=== PATIENT | female | born 1970 | race Caucasian/White ===

== ENCOUNTER 2017-03-04 18:11 | Emergency (ER) | payer OTHER ==
[~2017-03-04 18:11] MED LIST: ABILIFY5 MG PO; CELEBREX200 MG PO; FERROUS SULFAT325 M1 PO; FLUOXETINE HCL20 MG PO; IBUPROFEN600 MG PO; LAMOTRIGINE100 MG PO; LATUDA20 MG; NICOTINE T14 MG/24 H TOP; PROTONIX40 MG PO; VISTARIL25 MG PO
--- NOTE | 2017-03-04 19:35 | ED ORDER SUMMARY ---
..... Patient: ORALIA STEVE OrderSheet [facility] VisitID: [id number] [place] [address] 47y, F Registration Date/Time: 03/04/2017 ORDER SHEET Weight: 69.8 kg (stated) Allergies: No Known Drug Allergy GENERAL ORDERS: MEDICATION ORDERS: Bactrim DS PO (Tablet 800-160 mg) 1 tab (NOW) (19:03/04/2017 Pattie GARCIA) (Ack 19:34 RMarssharda R.N.) (19:42 RMarsden R.N.) Dilaudid IM 1 mg (HIGH ALERT MEDICATION, NOW) (:03/04/2017 Pattie GARCIA) (Ack 19:34 Jose R.N.) (19:42 RMarsden R.N.) IV FLUIDS: ORDER SHEET NOTES: [Electronically signed by Layne Sheppard R.N. (20:03/04/2017)] [Electronically signed by Marlen Quintana MD (10:02 03/11/2017)] [Electronically locked/signed by Layne Sheppard R.N. (20:03/04/2017)]
--- NOTE | 2017-03-04 19:35 | ED NURSING NOTES ---
Clinical Report - Nurses [facility] [address] [place] [address] 03/04/2017 18:13 Patient: ORALIA STEVE TRIAGE Triage time 18:16. Acuity: LEVEL 3. Chief Complaint: BOIL. Alert. No acute distress. JEFF COMA SCORE: Wayne Coma Scale: 15- eyes open spontaneously (4); best verbal response- oriented x 4 (5); best motor response- obeys commands (6). --18:28 Yumiko Petersen R.N. 18:15 03/04/17. BP: 109/70. HR: 101. RR: 18. O2 saturation: 100% on room air. Temp: 98.5 F (oral). Pain level now: 03/22. --18:28 Yumiko Petersen R.N. Weight: 69.8 kg stated. Height/Length: 62 inches. BMI: 28.2. --18:17 Yumiko Petersen R.N. Medications LaMICtal Oral 80 mg, daily. --18:24 Yumiko Petersen R.N. Abilify Oral (Tablet 10 mg), daily. --18:24 Yumiko Petersen R.N. PROzac Oral 80 mg, daily. --18:25 Yumiko Petersen R.N. Latuda Oral (Tablet 80 mg), daily. --18:25 Yumiko Petersen R.N. Something for anxiety. --18:26 Yumiko Petersen R.N. Iron Oral. --18:26 Yumiko Petersen R.N. Medication/allergy information source: the patient. --18:28 Yumiko Petersen R.N. Allergies No Known Drug Allergy. --18:26 Yumiko Petersen R.N. History Arrived by private vehicle. Historian: patient. Unaccompanied. Primary physician (Verito). Reported as located on the left thigh. Onset. (about 4 days). It is described as painful. PAST MEDICAL HX: Immunizations: up-to-date. Last normal menstrual period- February 2017. SOCIAL HX: Heavy tobacco smoker- less than 1 pack per day (vaps). Occasional alcohol use; consumes liquor. History of drug use: marijuana. (mushrooms). ABUSE ASSESSMENT: No report of abuse. SELF HARM ASSESSMENT: A self harm assessment was performed. The patient answered "no" to the question "Have you recently felt down, depressed, or hopeless?", "Have you noticed less interest or pleasure in doing things?", "Do you have thoughts of harming or killing yourself?", "Are you here because you tried to hurt yourself?", "Have you ever tried to hurt yourself before today?", "Have you recently had thoughts about harming or killing others?" and "Do you have any dangerous items in your possession?". FALL RISK ASSESSMENT: Fall risk assessment completed. No fall risk identified. FUNCTIONAL ASSESSMENT: Functional assessment: no impairments noted. LEARNING NEEDS ASSESSMENT: The learning needs assessment revealed no barriers. --18:28 Yumiko Petersen R.N. PROBLEMS: Schizoaffective Disorder. Anxiety Reaction. Abdominal Pain. Diarrhea. Vomiting. Anemia. Medication Refill. Normal Exam. Kidney Infection. Nephrolithiasis. Depression. --18:26 Yumiko Petersen R.N. ADDITIONAL SURGERIES: Abdominal Hernia Repair. Cholecystectomy. . Gastric bypass. Tonsillectomy. Vag warts. --18:26 Yumiko Petersen R.N. Assessment GENERAL / NEURO / PSYCH: Alert. Oriented X 4. Appears in no acute distress. Patient appears calm and cooperative. RESPIRATORY: Respirations not labored. SKIN: Skin is warm and dry. --18:28 Yumiko Petersen R.N. Interventions ID band on patient. To treatment room. --18:28 Yumiko Petersen R.N. PHYSICAL ASSESSMENT 18:32 03/04/17. Ambulatory to room. Patient gowned. GENERAL / NEURO / PSYCH: Alert. The patient does not appear to be in acute distress. Oriented X 4. RESPIRATORY: Respirations not labored. SKIN: Skin is warm and dry. --18:32 Yumiko Petersen R.N. NURSING PROGRESS NOTES 18:31 03/04/17. Head of bed elevated. Call light placed in reach. Side rails up x 1. Bed placed in lowest position. Brakes of bed on. --18:31 Yumiko Petersen R.N. 19:42 03/04/2017 Bactrim DS (Sulfamethoxazole-TMP DS) PO Tablets 1 tab given. Allergies verified and confirmed 5 rights. --19:42 Layne Sheppard R.N. 19:42 03/04/2017 Dilaudid (HYDROmorphone HCl PF) IM 1 mg given. Given in the right deltoid. Allergies verified, confirmed 5 rights and sedative warning given to the patient. --19:42 Layne Sheppard R.N. 19:45 03/04/17. I & D: Incision and Drainage of abscess performed by ED physician. Assisted by one nurse. The abscess is located on the left thigh. Preparation: Incision and Drainage tray set up. Procedure; a small amount of pus was drained. Cavity was irrigated with saline and packed with gauze. Sample obtained for cultures. A dressing was applied. Post-procedure: she was stable, no complications, bleeding controlled and dressing intact. Estimated blood loss: 2 mL. Total time of assist / procedure: 15 minutes. --19:45 Layne Sheppard R.N. Applied clean dressing consisting of 4x4 gauze, following the application of antibiotic ointment (bacitracin). Secured with rocio. --19:46 Layne Sheppard R.N. 19:51 03/04/2017 Bactrim DS PO Response: no adverse reaction. 03/04/2017 19:51 BP: 112/59. HR: 88. RR: 14. O2 saturation: 96%. Temp: 98.6 F. Pain level now: 10/23. --20:31 Layne Sheppard R.N. 19:51 03/04/2017 Dilaudid IM Response: no adverse reaction pain is gone now. Symptoms have improved the patient feels better. 03/04/2017 19:51 BP: 112/59. HR: 88. RR: 14. O2 saturation: 96%. Temp: 98.6 F. Pain level now: 10/23. --20:31 Layne Sheppard R.N. DISPOSITION / DISCHARGE 19:56 03/04/17. No learning barriers present. Discharge instructions provided and reviewed with the patient. Reviewed warnings. Reviewed medication(s). Treatments reviewed. Reviewed referrals. Patient verbalized understanding. Written instructions provided in E[place]. The patient was discharged home. She left the Emergency Department ambulatory and via taxi. --19:56 Layne Sheppard R.N. 19:51 03/04/17. BP: 112/59 taken on the left arm, while sitting. HR: 88. RR: 14. O2 saturation: 96%. Temp: 98.6 F. Pain level now: 10/23. --19:56 Layne Sheppard R.N. Locked/Released at 03/04/2017 20:31 by Layne Sheppard R.N.
--- NOTE | 2017-03-04 19:35 | ED CLINICAL REPORT ---
Clinical Report - Physicians/Mid Levels [facility] [address] [place] [address] 03/04/2017 18:13 Patient: ORALIA STEVE Time Seen: 18:20. Arrived- By private vehicle. Historian- patient. HISTORY OF PRESENT ILLNESS Chief Complaint: BOIL. This started several days ago and is still present. It is described as painful. It has been located on the left lower extremity. No cause has been identified. Similar symptoms previously: Occasionally. Recent medical care: Not recently seen/assessed. REVIEW OF SYSTEMS No fever, chills, sore throat, cough or difficulty breathing. No hoarseness, enlarged lymph nodes, headache, eye irritation or chest pain. No abdominal pain, nausea, diarrhea, difficulty with urination or joint pain. No vomiting. All systems otherwise negative, except as recorded above. PAST HISTORY Problems: Schizoaffective Disorder. Anxiety Reaction. Anemia. Nephrolithiasis. Depression. Additional Surgeries: Abdominal Hernia Repair. Cholecystectomy. . Gastric bypass. Tonsillectomy. Vag warts. Medications: Iron Oral. Something for anxiety. Latuda Oral (Tablet 80 mg), daily. PROzac Oral 80 mg, daily. Abilify Oral (Tablet 10 mg), daily. LaMICtal Oral 80 mg, daily. Allergies: No Known Drug Allergy. SOCIAL HISTORY Smoker- current status unknown. Alcohol use. History of drug use: marijuana. ADDITIONAL NOTES The nursing notes have been reviewed. PHYSICAL EXAM Vital Signs: 03/04/2017 18:15 BP: 109/70. HR: 101. RR: 18. O2 saturation: 100%. Temp: 98.5 F. Pain level now: 7/10. Have been reviewed. Appearance: Alert. Oriented X3. No acute distress. Eyes: Pupils equal, round and reactive to light. Conjunctivae and eyelids normal. ENT: Nose normal. Neck: Neck supple. CVS: Normal heart rate and rhythm. Heart sounds normal. Respiratory: No respiratory distress. Breath sounds normal. Abdomen: Nontender. Skin: Skin warm and dry. Normal skin color. No rash. Single medium tender indurated area with fluctuance and cellulitis to left thigh. No drainage. Extremities: (Normal inspection other than abscess mentioned above.). Neuro: No motor deficit. No sensory deficit. (Grossly oriented.). LABS, X-RAYS, AND EKG Pulse Oximetry: 03/04/2017 18:15 O2 saturation: 100%. (FIO2 - room air). Interpretation: normal. PROGRESS AND PROCEDURES Incision & Drainage of Abscess: The abscess is located in the left thigh. The risks of the procedure, benefits and alternatives were explained. Local anesthesia provided using 2% lidocaine. Skin cleansed with Betadine. The abscess was incised with a #11 surgical blade. A moderate amount of pus was drained. Cavity was irrigated with saline and packed with gauze. Sample obtained for cultures and gram stain. A dressing was applied. Course of Care: Patient was given Bactrim and a dose of Dilaudid in the emergency department. She was instructed regarding care of her abscess and the need for recheck of the wound with packing removal in 2 days. Patient counseled in person regarding the patient's stable condition, diagnosis and need for follow-up. Concerns were addressed. Old medical records reviewed. Disposition: Discharged. Condition: stable and improved. CLINICAL IMPRESSION Single superficial abscess to the left lower extremity with incision and drainage. INSTRUCTIONS Warnings: SEDATIVE MEDICATION: You were given sedative medication during your visit. Do not drive or operate dangerous machinery for 6 hours. GENERAL WARNINGS: Return or contact your physician immediately if your condition worsens or changes unexpectedly, if not improving as expected, or if other problems arise. Your Current Medications: CONTINUE TAKING THE FOLLOWING MEDICATIONS: Abilify Oral : Tablet 10 mg, daily. Iron Oral. LaMICtal Oral : 80 mg daily. Latuda Oral : Tablet 80 mg, daily. PROzac Oral : 80 mg daily. Something for anxiety*. Prescription Medications: Hydrocodone/APAP 5mg / 325mg: take 1-2 orally every 6 hours as needed for pain. Dispense fifteen (15). No refill. Bactrim DS 800 mg / 160 mg: take 1 tablet orally every 12 hours for 7 days. No refill. Substitution is permissible. Follow-up: Follow up with your doctor in two days for wound check and packing removal. Understanding of the discharge instructions verbalized by patient. (Electronically signed by Marlen Quintana MD 03/11/2017 10:02)
--- NOTE | 2017-03-04 19:35 | ED ORDER SUMMARY ---
..... Patient: ORALIA STEVE OrderSheet [facility] VisitID: [id number] [place] [address] 47y, F Registration Date/Time: 03/04/2017 ORDER SHEET Weight: 69.8 kg (stated) Allergies: No Known Drug Allergy GENERAL ORDERS: MEDICATION ORDERS: Bactrim DS PO (Tablet 800-160 mg) 1 tab (NOW) (19:03/04/2017 Pattie GARCIA) (Ack 19:34 RMarssharda R.N.) (19:42 RMarsden R.N.) Dilaudid IM 1 mg (HIGH ALERT MEDICATION, NOW) (:03/04/2017 Pattie GARCIA) (Ack 19:34 Jose R.N.) (19:42 RMarsden R.N.) IV FLUIDS: ORDER SHEET NOTES: [Electronically signed by Layne Sheppard R.N. (20:03/04/2017)] [Electronically signed by Marlen Quintana MD (10:02 03/11/2017)] [Electronically locked/signed by Layne Sheppard R.N. (20:03/04/2017)]
--- NOTE | 2017-03-11 10:02 | ED DISCHARGE INSTRUCTIONS ---
Patient: ORALIA STEVE General Instructions [facility] VisitID: [id number] [place] [address] 47y, F Registration Date/Time: 03/04/2017 Single superficial abscess to the left lower extremity with incision and drainage. INSTRUCTIONS Warnings: SEDATIVE MEDICATION: You were given sedative medication during your visit. Do not drive or operate dangerous machinery for 6 hours. GENERAL WARNINGS: Return or contact your physician immediately if your condition worsens or changes unexpectedly, if not improving as expected, or if other problems arise. Your Current Medications: CONTINUE TAKING THE FOLLOWING MEDICATIONS: Abilify Oral : Tablet 10 mg, daily. Iron Oral. LaMICtal Oral : 80 mg daily. Latuda Oral : Tablet 80 mg, daily. PROzac Oral : 80 mg daily. Something for anxiety*. Prescription Medications: Hydrocodone/APAP 5mg / 325mg: take 1-2 orally every 6 hours as needed for pain. Dispense fifteen (15). No refill. Bactrim DS 800 mg / 160 mg: take 1 tablet orally every 12 hours for 7 days. No refill. Substitution is permissible. Follow-up: Follow up with your doctor in two days for wound check and packing removal. Understanding of the discharge instructions verbalized by patient. ADDITIONAL INFORMATION Abscess [Incision & Drainage] An abscess (sometimes called a boil) occurs when bacteria get trapped under the skin and begin to grow. Pus forms inside the abscess as the body responds to the bacteria. An abscess can occur with an insect bite, ingrown hair, blocked oil gland, pimple, cyst, or puncture wound. Treatment of your abscess has required an incision to drain the pus. If the abscess pocket was large, a gauze packing may have been inserted. This will need to be removed and possibly replaced on your next visit. Antibiotics are not required in the treatment of a simple abscess, unless the infection is spreading into the skin around the wound (known as cellulitis). Healing of the wound will take about one to two weeks depending on the size of the abscess. Healthy tissue will grow from the bottom and sides of the opening until it seals over. Home Care: The wound may drain for the first two days. Cover the wound with a clean dry dressing. If the dressing becomes soaked with blood or pus, change it. If a gauze packing was placed inside the abscess cavity, you may be advised to remove it yourself. You may do this in the shower. Once the packing is removed, you should wash the area in the shower or bath 3 to 4 times a day, until the skin opening has closed. If you were prescribed antibiotics, take them as directed until they are all gone. You may use acetaminophen (Tylenol) or ibuprofen (Motrin, Advil) to control pain, unless another pain medicine was prescribed. [ NOTE: If you have liver disease or ever had a stomach ulcer, talk with your doctor before using these medicines.] Follow Up with your doctor as advised by our staff. If a gauze packing was inserted in your wound, it should be removed in 1-2 days. Check your wound every day for the signs of worsening infection listed below. Get Prompt Medical Attention if any of the following occur: Increasing redness or swelling Red streaks in the skin leading away from the wound Increasing local pain or swelling Continued pus draining from the wound two days after treatment Fever of 100.4F (38C) or higher, or as directed by your healthcare provider You have been given the following additional information: Abscess, Incision And Drainage (Electronically signed by Marlen Quintana MD 03/11/2017 10:02)
--- NOTE | 2017-03-11 10:02 | ED MED RECONCILIATION SUMMARY ---
Patient: ORALIA STEVE Medication Reconciliation Report [facility] VisitID: [id number] [place] [address] 47y, F Registration Date/Time: 03/04/2017 Weight: 69.8 kg Height/Length: 62 in. BMI: 28.2 ALLERGIES: No Known Drug Allergy The patient's Home Medications are listed below: CONTINUE TAKING THE FOLLOWING MEDICATIONS: Abilify Oral (10 mg), daily Iron Oral LaMICtal Oral 80 mg, daily Latuda Oral (80 mg), daily PROzac Oral 80 mg, daily Something for anxiety The source(s) of the original Home Medication information: patient The following Medications were given to the patient in the Emergency Department: Bactrim DS [PO] PO 1 tab, administered: 03/04/2017 7:42:00 PM Dilaudid [IM] IM 1 mg, administered: 03/04/2017 7:42:00 PM The following Medications were prescribed to the patient: Hydrocodone/APAP 5mg / 325mg: take 1-2 orally every 6 hours as needed for pain. Dispense fifteen (15). No refill. -- Marlen Quintana MD Bactrim DS 800 mg / 160 mg: take 1 tablet orally every 12 hours for 7 days. No refill. Substitution is permissible. -- Marlen Quintana MD
--- NOTE | 2017-03-11 10:02 | ED MED RECONCILIATION SUMMARY ---
Patient: ORALIA STEVE Medication Reconciliation Report [facility] VisitID: [id number] [place] [address] 47y, F Registration Date/Time: 03/04/2017 Weight: 69.8 kg Height/Length: 62 in. BMI: 28.2 ALLERGIES: No Known Drug Allergy The patient's Home Medications are listed below: CONTINUE TAKING THE FOLLOWING MEDICATIONS: Abilify Oral (10 mg), daily Iron Oral LaMICtal Oral 80 mg, daily Latuda Oral (80 mg), daily PROzac Oral 80 mg, daily Something for anxiety The source(s) of the original Home Medication information: patient The following Medications were given to the patient in the Emergency Department: Bactrim DS [PO] PO 1 tab, administered: 03/04/2017 7:42:00 PM Dilaudid [IM] IM 1 mg, administered: 03/04/2017 7:42:00 PM The following Medications were prescribed to the patient: Hydrocodone/APAP 5mg / 325mg: take 1-2 orally every 6 hours as needed for pain. Dispense fifteen (15). No refill. -- Marlen Quintana MD Bactrim DS 800 mg / 160 mg: take 1 tablet orally every 12 hours for 7 days. No refill. Substitution is permissible. -- Marlen Quintana MD
--- NOTE | 2017-03-11 10:02 | ED MAR SUMMARY ---
..... Medication Administration Record [facility] [address] [place] [address] Patient: ORALIA STEVE Visit ID: [id number] 47y, F Weight: 69.8 kg Height/Length: 62 in BMI: 28.2 ALLERGIES: No Known Drug Allergy Given 19:03/04/2017 Layne Sheppard, RLucyN. Medication Administered: BACTRIM DS [PO] (SULFAMETHOXAZOLE-TMP DS), Dose: 1 tab Tablets PO. Medication Ordered: Bactrim DS PO (Tablet 800-160 mg) 1 tab (NOW). Given 19:03/04/2017 Layne Sheppard, R.N. Medication Administered: DILAUDID [IM] (HYDROMORPHONE HCL PF), Dose: 1 mg IM. Medication Ordered: Dilaudid IM 1 mg (HIGH ALERT MEDICATION, NOW).
--- NOTE | 2017-03-11 10:02 | ED MAR SUMMARY ---
..... Medication Administration Record [facility] [address] [place] [address] Patient: ORALIA STEVE Visit ID: [id number] 47y, F Weight: 69.8 kg Height/Length: 62 in BMI: 28.2 ALLERGIES: No Known Drug Allergy Given 19:03/04/2017 Layne Sheppard, RLucyN. Medication Administered: BACTRIM DS [PO] (SULFAMETHOXAZOLE-TMP DS), Dose: 1 tab Tablets PO. Medication Ordered: Bactrim DS PO (Tablet 800-160 mg) 1 tab (NOW). Given 19:03/04/2017 Layne Sheppard, R.N. Medication Administered: DILAUDID [IM] (HYDROMORPHONE HCL PF), Dose: 1 mg IM. Medication Ordered: Dilaudid IM 1 mg (HIGH ALERT MEDICATION, NOW).
== END 2017-03-04 19:56 | disposition home or self-care (01) ==
LOC: ED SRH 18:11
DX: L02.416 Cutaneous abscess of left lower limb (principal); Z79.899 Other long term (current) drug therapy